=== PATIENT | female | born 1935 | race Caucasian/White ===

== ENCOUNTER 2020-06-12 11:43 | Emergency (ER) | payer MEDICARE ==
[~2020-06-12] VITALS: Ht 154.9 cm; Wt 63.5 kg
--- OUTSIDE RECORDS SUMMARY | 2020-06-12 12:12 | XMS REPORT | Continuity of Care Document ---
Author Author Leroy Riley [facility] Address Unknown Phone Unavailable Care Team Providers Care Motor Boss Name Role Phone [employer] Unavailable Un available Problems Problem Status Onset Date Classification Date Reported Comments Source Polymyalgia rheumatica Active Problem 11/12/2015 Ceferino Altman Polymyalgia rheumatica Active Diagnosis 11/12/2015 Ceferino Altman Medications Medication Details Route Status Patient Instructions Ordering Provider Order Date Source PredniSONE 1 tablet Orally Active 5 MG Orally Once a day [place] 12/21/2013 Ceferino Altman Caltrate 600+D 2 tablets Orally Active 600-400 MG-UNIT Orally Once a day Anupama Altman Aspirin 1 tablet Orally Active 81 MG Orally every othe r day Anupama Altman Simvastatin 1 tablet in the ev ening Orally Active 40 MG Orally Once a day Anupama Altman Dyazide 1 capsule in the morni ng Orally Active 37.5-25 MG Orally Once a day Altman Ceferino Altman ICaps as directed Orally Active Orally Altman Ceferino Altman Lisinopril 1 tablet Orally Active 10 MG Orally Once a day Anupama Altman Allergies, Adverse Reactions, Alerts Substance Category Reaction Severity Reaction type Status Date Reported Comments Source N.K.D.A. Adverse Reaction Info Not Available Adverse Reaction Active 11/01/2015 Ceferino Altman Immunizations Immunization Date Given Site Status Last Updated Comments Source Depomedrol 12/21/2013 completed Ceferino Altman Toradol 12/21/2013 completed Ceferino Altman Results No Data Provided for This Section Pathology Reports No Data Provided for This Section Diagnostic Reports No Data Provided for This Section Consultation Notes No Data Provided for This Section Discharge Summaries No Data Provided for This Section History and Physicals No Data Provided for This Section Vital Signs Vital Sign Value Date Comments Source Weight 138 11/01/2015 Ceferino Altman Height 63 0 11/01/2015 Ceferino Altman Temperature Oral (F) 98.7 F 11/01/2015 Ceferino Altman Heart Rate 69 11/01/2015 Ceferino Altman Diastolic (mm Hg) 70 11/01/2015 Ceferino Altman Systolic (mm Hg) 130 11/01/2015 Ceferino Altman Weight 150 01/27/2014 Ceferino Altman Height 63.5 01/27/2014 Ceferino Altman Temperature Oral (F) 98.5 F 01/27/2014 Ceferino Altman Heart Rate 80 01/27/2014 Ceferino Altman Diastolic (mm Hg) 58 01/27/2014 Ceferino Altman Systolic (mm Hg) 118 01/27/2014 Ceferino Altman Weight 152 12/21/2013 Ceferino Altman Height 63 0 12/21/2013 Ceferino Altman Temperature Oral (F) 97.1 F 12/21/2013 Ceferino Altman Heart Rate 72 12/21/2013 Ceferino Altman Diastolic (mm Hg) 60 12/21/2013 Ceferino Altman Systolic (mm Hg) 148 12/21/2013 Ceferino Altman Encounters Location Location Details Encounter Type Encounter Number Reason For Visit Attending Provider ADM Date DC Date Status Source Renzo Altman MD polymyalgia [id number] 12/22/19 14 12/21/2013 Ceferino Altman MD polymyalgia [id number] 12/22/19 14 12/21/2013 Ceferino Altman MD polymyalgia [id number] 12/22/19 14 12/21/2013 Ceferino Altman MD 4-6 wk f/u [id number] 01/28/20 14 01/27/2014 Ceferino Altman MD 4-6 wk f/u [id number] 01/28/20 14 01/27/2014 Ceferino Altman MD 4-6 wk f/u [id number] 01/28/20 14 01/27/2014 Ceferino Altman MD 4-6 wk f/u [id number] 05/03/20 14 05/03/2014 Ceferino Altman MD 6M F/U [id number] 11/02/19 15 11/01/2014 Ceferino Altman MD 6M F/U [id number] 05/03/20 15 05/03/2015 Ceferino Altman MD 6M F/U [id number] 11/01/19 16 11/01/2015 Ceferino Altman Procedures No Data Provided for This Section Assessment and Plan No Data Provided for This Section Plan of Care No Data Provided for This Section Social History Social History Date Source Social History ElementQualifiersDate Rep orted Marital Status: . November 01, 2015 Caffeine: yes. frequency:1 cup a day November 01, 2015 Exercise: yes. walk November 01, 2015 Alcohol: no. November 01, 2015 Occupation: . house November 01, 2015 11/01/2015 Ceferino Altman Family History No Data Provided for This Section Advance Directives No Data Provided for This Section Functional Status No Data Provided for This Section
--- NOTE | 2020-06-12 12:49 | Emergency Department Note ---
History of Present Illnes History of Present Illness Chief Complaint: Extremity Trauma/Pain History of Present Illness This is a 84 year old female arrived to the ED with complaints of left knee and hip pain after tripping on a carpet. Patient states her pain is better now but her children were insisted she come to the ED. Patient states pain is only present on ambulation, patient denies any head trauma . Chief Complaint Comment Patient in from home via EMS with reports of left knee and hip pain that started after she suffered a mechanical trip and fall when coming out of her restroom today about 1 hour prior to arrival. Patient denies hitting her head and loss of consciousness. Patient was able to bare weight on her left leg but states that the pain increases when she does. Denies pain at rest. Left knee does appear swollen when compared to the right. No acute distress noted. No overt bruising or disruption to skin integrity is seen. 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 Any updates have been documented here. Past Medical History Recent Fever: No Clinical Suspicion of Infectio: No New/Unexplained Change in Ment: No Past Medical History: Hypertension, Hyperlipedemia Past Surgical History: None Social History Smoking Cessation: Never Smoker Counseling Performed: No Alcohol Use: None Any Illegal Drug Use: No Other Any Pre-Existing Lines (PICC,: No Review of Systems Review of Systems Constitutional: Reports no symptoms EENTM: Reports no symptoms Cardiovascular: Reports no symptoms Respiratory: Reports no symptoms Gastrointestinal: Reports no symptoms Genitourinary: Reports no symptoms Musculoskeletal: Reports as per HPI, Reports joint pain Integumentary: Reports no symptoms Neurological: Reports no symptoms Psychological: Reports no symptoms Endocrine: Reports no symptoms Hematological/Lymphatic: Reports no symptoms Review of other systems: All other systems negative Physical Exam Related Data Allergies: Coded Allergies: No Known Allergies (Unverified , 06/12/20) Triage Vital Signs Vital Signs Date Time Temp Pulse Resp B/P (MAP) Pulse Ox O2 Delivery O2 Flow Rate FiO2 06/12/20 11:45 98.4 73 16 139/112 98 Room Air Physical Exam CONSTITUTIONAL Constitutional: Present well-developed, Present well-nourished HENT HENT: Present normocephalic, Present atraumatic, Present oropharynx clear/moist, Present nose normal HENT L/R: Present left ext ear normal, Present right ext ear normal EYES Eyes: Reports PERRL, Reports conjunctivae normal NECK Neck: Present ROM normal PULMONARY Pulmonary: Present effort normal, Present breath sounds normal CARDIOVASCULAR Cardiovascular: Present regular rhythm, Present heart sounds normal, Present capillary refill normal, Present normal rate GASTROINTESTINAL Abdominal: Present soft, Present nontender, Present bowel sounds normal GENITOURINARY Genitourinary: Present exam deferred SKIN Skin: Present warm, Present dry MUSCULOSKELETAL Musculoskeletal: Present ROM normal, Present swelling, Present other (Quadriceps - No pathology appreciated; Quadriceps ad tendon - No pathology appreciated; Patella - No pathology appreciated; Patellar Tendon - No pathology appreciated; Joint line medial - No pathology appreciated; Joint line lateral - No pathology appreciated; Yuliya - No pathology appreciated; Zoë - No pathology appreciated; Popliteal - No pathology appreciated; Neurovascular - No pathology appreciated) NEUROLOGICAL Neurological: Present alert, Present oriented x 3, Present no gross motor or sensory deficits PSYCHOLOGICAL Psychological: Present mood/affect normal, Present judgement normal Results Imaging Imaging results reviewed: Yes Assessment & Plan Medical Decision Making MDM This 84-year-old female patient presents with knee pain, suspicious for tendon strain. Able to flex and extend although somewhat limited by pain. Considered, but doubt, tibial plateau fracture, septic arthritis, other acute unstable f racture, or significant neurovascular compromise. Plan: XR, pain control, reassessment Assessment & Plan Final Impression: (1) Knee strain Depart Disposition: HOME, SELF-CARE Last Vital Signs Date Time Temp Pulse Resp B/P (MAP) Pulse Ox O2 Delivery O2 Flow Rate FiO2 06/12/20 11:45 98.4 73 16 139/112 98 Room Air Home Meds Active Scripts Tramadol Hcl (ULTRAM) 50 Mg Tablet, 50 MG PO Q6HR PRN for Mild Pain (1-3) or Fever>100.8, #12 TAB Prov:TIA ARAIZA DO 06/12/20 TIA ARAIZA DO Jun 12, 2020 12:49
--- NOTE | 2020-06-12 13:21 | Diagnostic Imaging Report ---
X-ray AP of the pelvis and AP of the right hip. HISTORY: Pain. COMPARISON: None available. FINDINGS: Bone/joints: No acute fracture or dislocation. There are mild to moderate degenerative changes of the bilateral hips. The sacroiliac joints are symmetric. No pubic symphyseal widening. The sacrum is obscured by overlying bowel gas. Soft tissues: There are multiple phleboliths project in the pelvis. Otherwise no focal soft tissue abnormality. Others: The partially imaged lower abdomen demonstrates normal bowel gas pattern. Multilevel degenerative changes of the lower lumbar spine. IMPRESSION: No acute radiographic abnormality. Signed by: Shan Sims MD on 06/12/2020 1:18 PM
--- NOTE | 2020-06-12 13:27 | Diagnostic Imaging Report ---
X-ray 3 views of the knee HISTORY: Pain. COMPARISON: None available. FINDINGS: Bones: No acute displaced fracture. Osseous alignment is within normal limits. Joints: There are mild tricompartmental degenerative changes. Soft tissues: There is severe atherosclerotic vascular calcification of the lower extremity vessels. IMPRESSION: No acute radiographic abnormality. Mild tricompartmental degenerative changes. Signed by: Shan Sims MD on 06/12/2020 1:24 PM
[2020-06-12] MEDS ORDERED: ULTRAM50 MG PO (14:02)
[2020-06-12] MEDS: TRAMADOL HCL 50 MG TAB PO ONE (15:03)
== END 2020-06-12 15:17 | disposition home or self-care (01) ==
LOC: ER 12:10
DX: M25.562 Pain in left knee (principal); S83.92XA Sprain of unspecified site of left knee, initial encounter; M25.552 Pain in left hip; W01.0XXA Fall on same level from slipping, tripping and stumbling without subsequent striking against object, initial encounter; Y93.01 Activity, walking, marching and hiking; Y92.008 Other place in unspecified non-institutional (private) residence as the place of occurrence of the external cause; I10 Essential (primary) hypertension; E78.5 Hyperlipidemia, unspecified
CPT/HCPCS: 99284